=== PATIENT | male | born 1950 | race Caucasian/White ===

== ENCOUNTER 2017-03-10 01:27 | Emergency (ER) | payer OTHER ==
[~2017-03-10] VITALS: Ht 177.8 cm; Wt 75.0 kg
[2017-03-10] MEDS ORDERED: METHOCARBAMOL 750 MG TABLET ONE (02:30)
[2017-03-10] MEDS ORDERED: HYDROmorphone 1 MG/ML, 1ML IM ONE (02:30)
[2017-03-10] MEDS ORDERED: METHOCARBAMOL 750 MG TABLET PO ONE (02:30)
[2017-03-10] MEDS ORDERED: HYDROmorphone 2 MG/ML, 1ML ONE (02:31)
[2017-03-10 02:39] LABS: MEAN CORPUSCULAR HEMOGLOBIN 32.6 pg (27.5-34.5); MEAN CORPUSCULAR HGB CONC 33.7 g/dL (33.2-36.2); MEAN CORPUSCULAR VOLUME 96.7 fL (81-97); MEAN PLATELET VOLUME 7.3 fL (7.4-10.4); PLATELET COUNT 243 x10^3/uL (130-400); RED BLOOD COUNT 4.58 x10^6/uL (4.38-5.82); RED CELL DISTRIBUTION WIDTH 13.7 % (9.4-14.8)
[2017-03-10 02:51] LABS: ALBUMIN 3.9 g/dL (3.4-5.0); ANION GAP 8 mmol/L (5-15); CALCIUM 9.1 mg/dL (8.5-10.1); CHLORIDE 105 mmol/L (98-107); CREATININE 1.15 mg/dL (0.7-1.3)
[2017-03-10 03:03] LABS: MD YES
[2017-03-10 03:06] LABS: LYMPH#(MANUAL) 4.95 x10^3/uL (1-3.4); LYMPHS% (MANUAL) 51 % (22-44); MONOS#(MANUAL) 0.49 x10^3/uL (0.3-2.7); MONOS% (MANUAL) 5 % (2-9); SEG#(MANUAL) 4.27 x10^3/uL (1.8-6.8); SEGS% (MANUAL) 44 % (42-75)
[2017-03-10 03:07] LABS: <PLATELET ESTIMATE> ADEQUATE; <PLT MORPHOLOGY> NORMAL PLT MORPH; <RBC MORPHOLOGY> NORMAL
[2017-03-10 04:28] VITALS: BP 128/69
== END 2017-03-10 05:19 | disposition home or self-care (01) ==
LOC: ED 03:39
DX: M54.41 Lumbago with sciatica, right side (principal)
CPT/HCPCS: 36415; 72131; 80048; 82040; 85025; 93971; 96372; 99285; J1170

== ENCOUNTER → 2020-02-21 | Outpatient (CLI) | payer MEDICARE, OTHER ==
[~2020-02-21] MED LIST: OMNIPAQUE 350 MG/ML, 100ML BOTTLE ONE
[2020-02-21 09:46] LABS: CREATININE 1.01 mg/dL (0.7-1.3)
== END | disposition home or self-care (01) ==
LOC: RAD 08:54
PROVIDERS: ATTEND Urology
DX: C61 Malignant neoplasm of prostate (principal); K76.89 Other specified diseases of liver; N28.1 Cyst of kidney, acquired; E11.9 Type 2 diabetes mellitus without complications
CPT/HCPCS: 36415; 74177; 78306; 82565; A9503; Q9967

== ENCOUNTER 2020-02-28 09:53 | Outpatient (CLI) | payer MEDICARE ==
[2020-02-28] MEDS ORDERED: nyquil PO (10:18)
[2020-02-28] MEDS ORDERED: Vitamin D3 PO (10:18)
[2020-02-28] MEDS ORDERED: MULT-449 PO (10:18)
== END 2020-02-28 23:59 | disposition home or self-care (01) ==
LOC: STAR 09:53
PROVIDERS: ATTEND Urology
DX: Z01.812 Encounter for preprocedural laboratory examination (principal); Z20.828 Contact with and (suspected) exposure to other viral communicable diseases; C61 Malignant neoplasm of prostate
CPT/HCPCS: 93005; U0003

== ENCOUNTER 2020-03-09 06:41 | Outpatient (CLI) | payer MEDICARE ==
[~2020-03-09 06:41] MED LIST changes: +MULT-449 PO; -OMNIPAQUE 350 MG/ML, 100ML BOTTLE ONE; +Vitamin D3 PO; +nyquil PO
== END 2020-03-09 23:59 | disposition home or self-care (01) ==
LOC: RAD 06:41
PROVIDERS: ATTEND Urology
DX: C61 Malignant neoplasm of prostate (principal); N32.89 Other specified disorders of bladder; Z79.899 Other long term (current) drug therapy
CPT/HCPCS: 51600; 74430; Q9958